=== PATIENT | female | born 1980 | race Caucasian/White ===

== ENCOUNTER 2018-01-14 17:08 | Inpatient (IN) | payer OTHER ==
[~2018-01-14] VITALS: Ht 157.5 cm; Wt 69.9 kg
[2018-01-22] MEDS ORDERED: PRENATAL TABLE1 EAC1 PO (11:14)
== END 2018-01-25 20:03 | disposition home or self-care (01) | DRG 765 ==
LOC: LDR 01-22 09:15 → O/R 01-22 10:05 → OB/GYN 01-22 15:34 → LDR 01-22 17:07 → OB/GYN 01-25 20:03
PROVIDERS: Obstetrics & Gynecology
PROC: 4A033R1 Measurement of Arterial Saturation, Peripheral, Percutaneous Approach (ICD-10-PCS; 2018-01-22)
PROC: 4A1HXCZ Monitoring of Products of Conception, Cardiac Rate, External Approach (ICD-10-PCS; 2018-01-22)
PROC: 10D00Z1 Extraction of Products of Conception, Low, Open Approach (ICD-10-PCS; principal; 2018-01-22 09:15)
DX: O99.824 Streptococcus B carrier state complicating childbirth (principal); J16.8 Pneumonia due to other specified infectious organisms; Z3A.37 37 weeks gestation of pregnancy; Z37.0 Single live birth; O09.523 Supervision of elderly multigravida, third trimester